=== PATIENT | female | born 1980 | race Caucasian/White ===

== ENCOUNTER 2019-01-28 15:11 | Emergency (ER) | payer BC ==
[2019-01-28] MEDS ORDERED: AMOXICILLIN/POTASSIUM CLAV 875-125 TABLET PO ONE (17:10)
[2019-01-28] MEDS ORDERED: TETANUS/DIPHTHERIA TOXOID [ADULT] 0.5 ML VIAL IM ONE (17:10)
== END 2019-01-28 17:27 | disposition home or self-care (01) ==
LOC: EDH 15:11
DX: S61.052A Open bite of left thumb without damage to nail, initial encounter (principal); S61.051A Open bite of right thumb without damage to nail, initial encounter; W55.01XA Bitten by cat, initial encounter; Y93.89 Activity, other specified; Y92.89 Other specified places as the place of occurrence of the external cause; Y99.8 Other external cause status
CPT/HCPCS: 90471; 90714